=== PATIENT | female | born 1965 | race Two or more races ===

== ENCOUNTER 2018-02-06 08:26 | Emergency (ER) | payer MEDICAID ==
[2018-02-06] MEDS ORDERED: FAMOTIDINE 20 MG TAB PO ONE (09:01)
[2018-02-06] MEDS ORDERED: LIDOCAINE 2% VISCOUS 15 ML UDCUP PO ONE (09:01)
[2018-02-06] MEDS ORDERED: ONDANSETRON DISINTEGRATING 4 MG TAB PO ONE (09:01)
[2018-02-06] MEDS ORDERED: HYOSCYAMINE SULFATE 0.125 MG TAB PO ONE (09:01)
[2018-02-06] MEDS ORDERED: MAG HYDROX/AL HYDROX/SIMETH 30 ML UDCUP PO ONE (09:01)
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
--- NOTE | 2018-02-06 09:11 | CPEKG ---
Heart Rate: 60 RR Interval: 1000 P-R Interval: 164 QRSD Interval: 100 QT Interval: 428 QTC Interval: 428 P [place]: 46 QRS [place]: 54 T Wave [place]: 51 EKG Severity - NORMAL ECG - EKG Impression: SINUS RHYTHM EKG Impression: INCOMPLETE RIGHT BUNDLE BRANCH BLOCK Electronically Signed By: Will Tatum 08-Feb-2018 08:35:18
[2018-02-06 10:01] VITALS: BP 114/64
== END 2018-02-06 09:57 | disposition home or self-care (01) ==
LOC: CED 08:26
DX: K21.9 Gastro-esophageal reflux disease without esophagitis (principal); F17.200 Nicotine dependence, unspecified, uncomplicated